=== PATIENT | female | born 1950 | race Caucasian/White ===

== ENCOUNTER → 2019-01-15 | Outpatient (CLI) | payer SELFPAY ==
[~2019-01-15] MED LIST: PHEN100T82 PO; SULF1TAB24 PO
== END | disposition home or self-care (01) ==
LOC: LAB 08:44
DX: Z31.438 Encounter for other genetic testing of female for procreative management (principal)
CPT/HCPCS: 36415

== ENCOUNTER 2019-01-27 19:36 | Emergency (ER) | payer MEDICARE ==
[~2019-01-27] VITALS: Ht 175.3 cm; Wt 74.8 kg
[2019-01-27 20:03] LABS: BILIRUBIN,URINE NEGATIVE (NEG); CLARITY,URINE CLEAR; COLOR,URINE YELLOW; NITRITE,URINE NEGATIVE (NEG); PROTEIN,URINE NEGATIVE (NEG-TRACE); UROBILINOGEN,URINE 0.2 mg/dL (0.2 mg/dL)
[2019-01-27 20:10] LABS: BACTERIA,URINE 0 /HPF (0-FEW); HYALINE CASTS, URINE MANY /HPF; SQUAMOUS EPITHELIAL CELL,UR MANY /LPF; WBC,URINE TNTC /HPF (0-4)
[2019-01-27] MEDS ORDERED: SULF1TAB24 PO (20:24)
[2019-01-27] MEDS ORDERED: PHEN100T82 PO (20:24)
--- NOTE | 2019-01-27 20:25 | PHYS DOC ---
Adult General Chief Complaint Chief Complaint: PAIN ON URINATION [facility] HPI Patient is a 68 year old female who presents to the emergency Department today with complaints of dysuria that began today. Patient states few hours ago after she woke up from a nap she felt sharp pain in her urethra after urinating. She states that she has not felt well for a couple of days, she denies any specific complaint. She currently rates her pain as 3 out of 10 on the pain scale, there are no alleviating or exacerbating factors. ROS Patient denies any fever, cough, shortness of breath, sore throat, ear pain, or back pain. She denies any abdominal pain, nausea, or vomiting. Patient states she has had some loose stools recently, she denies any blood in her stools or urine. Patient denies any incontinence, or decreased urine output. All other ROS is neg unless otherwise noted in HPI. (NORMAN NAIK APRN) Review of Systems Review of Systems See Above (NORMAN NAIK APRN) Allergies Allergies Allergies Coded Allergies Type Severity Reaction Last Updated Verified Penicillins Allergy Unknown 01/27/19 Yes amitriptyline Allergy Unknown 01/27/19 Yes (YAJAIRA ORTEGA DO) Physical Exam Physical Exam See Above Constitutional: Well developed, well nourished, no acute distress, non-toxic appearance. [] HENT: Normocephalic, atraumatic, bilateral external ears normal, oropharynx moist, no oral exudates, nose normal. [] Eyes: PERRLA, conjunctiva normal, no discharge. [] Neck: Normal range of motion, no stridor. [] Cardiovascular:Heart rate regular rhythm Lungs & Thorax: Bilateral breath sounds clear to auscultation [] Abdomen: soft, no tenderness, no masses, no pulsatile masses. [] Skin: Warm, dry, no erythema, no rash. [] Back: No CVA tenderness. [] Extremities: No cyanosis, ROM intact Neurologic: Alert and oriented X 3, no focal deficits noted. [] Psychologic: Affect normal, judgement normal, mood normal. [] (NORMAN NAIK APRN) Current Patient Data Vital Signs Vital Signs Date Time Temp Pulse Resp B/P (MAP) Pulse Ox O2 Delivery O2 Flow Rate FiO2 01/27/19 20:38 98.2 84 18 160/68 (98) 98 Room Air 98.2 (YAJAIRA ORTEGA DO) Lab Values Laboratory Tests Test 01/27/19 19:40 Urine Collection Type Unknown Urine Color Yellow Urine Clarity Clear Urine pH 5.0 Urine Specific [place] 1.020 Urine Protein Negative mg/dL (NEG-TRACE) Urine Glucose (UA) Negative mg/dL (NEG) Urine Ketones (Stick) Negative mg/dL (NEG) Urine Blood Small (NEG) Urine Nitrite Negative (NEG) Urine Bilirubin Negative (NEG) Urine Urobilinogen Dipstick 0.2 mg/dL (0.2 mg/dL) Urine Leukocyte Esterase Large (NEG) Urine RBC 3-5 /HPF (0-2) Urine WBC Tntc /HPF (0-4) Urine Squamous Epithelial Cells Many /LPF Urine Bacteria 0 /HPF (0-FEW) Urine Hyaline Casts Many /HPF Urine Mucus Mod /LPF (YAJAIRA ORTEGA DO) EKG EKG [] (NORMAN NAIK APRN) Radiology/Procedures Radiology/Procedures [] (NORMAN NAIK APRN) Course & Med Decision Making Course & Med Decision Making Pertinent Labs and Imaging studies reviewed. (See chart for details) dx: UTI Pescriptions written for Bactrim DS one tab by mouth twice a day �7 days, and Pyridium as needed for dysuria. Patient instructed to avoid bladder irritants. Increase clear fluids. Follow-up with primary care doctor symptoms persist, return to the ER if symptoms worsen. Patient verbalized an understanding of home care, medications, follow-up, and return to ED instructions and was in agreement with the plan of care. [] (NORMAN NAIK APRN) Dragon Disclaimer Dragon Disclaimer This electronic medical record was generated, in whole or in part, using a voice recognition dictation system. (NORMAN NAIK APRN) Departure Departure Impression: Primary Impression: UTI (urinary tract infection) Disposition: 01 HOME, SELF-CARE Condition: STABLE Referrals: BIBI CROWDER MD (PCP) Patient Instructions: Urinary Tract Infection, [id number] Additional Instructions: Fill prescription(s) and use as directed. Avoid bladder irritants such as caffeine, carbonation, and spicy foods. Increase clear fluids. Follow up with your primary care doctor if symptoms persist, return to the ER if symptoms worsen. Scripts Phenazopyridine Hcl (PYRIDIUM) 100 Mg Tablet 100 MG PO TID PRN for PAIN for 5 Days, #15 TAB 0 Refills Prov: NORMAN NAIK APRN 01/27/19 Sulfamethoxazole/Trimethoprim (BACTRIM DS TABLET) 1 Each Tablet 1 TAB PO BID, #14 TAB 0 Refills Prov: NORMAN NAIK APRN 01/27/19 Attending Signature Attending Signature I have reviewed the PA/PAYROLL DIRECTOR's note and plan of care. I was available for consultation as needed during the patient's visit in the emergency department. I agree with the clinical impression, plan, and disposition. (YAJAIRA ORTEGA DO) Problem Qualifiers Primary Impression: UTI (urinary tract infection) Urinary tract infection type: site unspecified Hematuria presence: without hematuria Qualified Codes: N39.0 - Urinary tract infection, site not specified NORMAN NAIK APRN Jan 27, 2019 20:25 YAJAIRA ORTEGA DO Jan 28, 2019 01:21
[2019-01-27 20:38] VITALS: BP 160/68
== END 2019-01-27 20:42 | disposition home or self-care (01) ==
LOC: ER 19:36
DX: N39.0 Urinary tract infection, site not specified (principal); Z88.0 Allergy status to penicillin; Z88.8 Allergy status to other drugs, medicaments and biological substances
CPT/HCPCS: 81001; 87086; 99284